=== PATIENT | female | born 1960 | race Caucasian/White ===

== ENCOUNTER 2018-09-12 05:56 | Day surgery (SDC) | payer BC ==
--- NOTE | 2018-09-05 10:07 | EKG ---
Test Date: 2018-09-05 Test Time: 09:36:30 Woven Label Designer: MACKENZIE MEASUREMENT RESULTS: Intervals: Rate: 66 IN: 156 QRSD: 86 QT: 406 QTc: 425 Mongo: P: 47 IN: 156 QRS: 58 T: 63 INTERPRETIVE STATEMENTS: Normal sinus rhythm Normal ECG No previous ECG available for comparison Electronically Signed On 09-05-18 10:07:46 ERADICATOR by Eliseo Dia
[2018-09-05 10:09] LABS: Protime INR 0.95
[2018-09-05 10:11] LABS: Absolute Lymphocytes (CBC) 2.3 K/uL (0.7-4.9); Absolute Monocytes 0.6 K/uL (0.1-1.3); Basophils % 0.7 % (0-1.3); Eosinophils % 4.6 % (0-4.4); Hematocrit 38.8 % (36.0-45.0); Lymphocytes % 31.5 % (15.3-44.8); MCH 29.5 pg (27.0-35.0); MCV 85.7 fL (80-100); MPV 8.4 fL (7.6-11.3); Monocytes % 8.6 % (3.3-12.3); RBC Red Blood Cell Count 4.53 M/uL (3.86-4.86)
[2018-09-05 10:14] LABS: Potassium 4.6 mmol/L (3.5-5.1)
[2018-09-12] MEDS ORDERED: CEFAZOLIN/SWI 2gm 2 GM/20 ML SYR IV SCH (06:00)
[2018-09-12] MEDS ORDERED: CEFAZOLIN/SWI 1gm 1 GM/10 ML SYR ONE ×2 (06:41→08:27)
[2018-09-12] MEDS ORDERED: Ringers Lactate 1,000 ML IV ONE ×2 (06:41→07:17)
[2018-09-12] MEDS ORDERED: LIDOCAINE 1% MPF 30 ML VIAL ONE (06:45)
[2018-09-12] MEDS ORDERED: MIDAZOLAM HCL 2 MG/2 ML INJ ONE (07:05)
[2018-09-12] MEDS ORDERED: PROPOFOL 200 MG/20 ML VIAL IV ONE (07:05)
[2018-09-12] MEDS ORDERED: FENTANYL CITR 250 MCG/5 ML ONE (07:05)
[2018-09-12] MEDS ORDERED: ROCURONIUM 50 MG/5 ML VIAL IV ONE (07:05)
[2018-09-12] MEDS ORDERED: LIDOCAINE 2% MPF 5 ML VIAL ONE (07:05)
[2018-09-12] MEDS ORDERED: DEXAMETHASONE 4 MG/ML VIAL ONE (07:13)
[2018-09-12] MEDS ORDERED: ROPLVACAINE HCL 20 ML ONE (07:13)
[2018-09-12] MEDS ORDERED: EPINEPHRINE/PF 1 MG/ML AMP ONE (07:17)
[2018-09-12] MEDS ORDERED: ONDANSETRON HCL 40 MG/20 ML VIAL ONE (07:36)
[2018-09-12] MEDS ORDERED: KETOROLAC 30 MG/ML INJ ONE (08:48)
--- NOTE | 2018-09-12 09:11 | P.BOP ---
Preoperative diagnosis: right shoulder adhesive capsulitis, SLAP tear Postoperative diagnosis: same Primary procedure: right shoulder arthroscopic SLAP debridement w/ lysis of adhesions Secondary procedure: right shoulder arthroscopic rotator cuff debridement Toe Sewer: NONE,NONE Estimated blood loss: 5 cc Specimen: none Findings: see dictation Anesthesia: General Complications: None Implants: none Fluids & blood products: per anesthesia Transferred to: Recovery Room Condition: Good
[2018-09-12] MEDS ORDERED: ONDANSETRON 4 MG/2 ML VIAL ONE (09:21)
--- NOTE | 2018-09-12 22:34 | OP ---
Date of Procedure: 09/12/2018 Surgeon: Marco Antonio Nunez MD Preoperative Diagnoses: 1.Right shoulder partial rotator cuff tear. 2.Right shoulder superior labrum anterior and posterior tear. 3.Right shoulder bicipital tenosynovitis. Postoperative Diagnoses: 1.Right shoulder partial rotator cuff tear. 2.Right shoulder superior labrum anterior and posterior tear. 3.Right shoulder bicipital tenosynovitis. Procedure Performed: 1.Right shoulder arthroscopic superior labrum anterior and posterior tear debridement. 2.Right shoulder arthroscopic debridement of partial thickness rotator cuff tear. Anesthesia: General endotracheal. Fluids: Per Anesthesia record. Estimated Blood Loss: Less than 5 cc. Implants: None. Complications: None. Indication For Procedure: Sonali is a 58-year-old female who presented with history of adhesive caps ulitis with continued pain. She had MRI preoperatively which demonstrated some rotator cuff tendinit is as well as some partial-thickness tear as well as some signal within her superior labrum with cont inued pain. I discussed with the patient at length risks and benefits associated with operative and nonoperative treatment. She expressed understanding and elected to proceed with operative treatment. Description Of Procedure: After informed consent was obtained, the patient was identified in the pre operative holding area. The right upper extremity was marked. The patient then underwent an intersc lynda block to her right upper extremity performed by Anesthesia. She was then transferred to the op erating room, transferred to the operative table in supine fashion, placed under general endotracheal anesthesia. She was then placed in the beach chair position with her extremities well padded. The right upper extremity was then examined. The patient did have full flexion, full external rotation, and full abduction of the right shoulder. The right upper extremity was then prepped and draped in u sual sterile fashion. A time-out was initiated. The correct patient and procedure were confirmed an d identified. The patient did receive her preoperative prophylactic antibiotics. Via the posterior portal position, a spinal needle was introduced in the glenohumeral joint and 30 cc of normal saline was injected into the glenohumeral joint to distend the capsule. A stab incision was made to create a posterior portal. An arthroscope was brought into the posterior portal position. A diagnostic art hroscopy was performed. Anterior portal was then created and a cannula was placed to aid with the di agnostic arthroscopy. The patient was noted to have some mild minimal partial-thickness fraying of t he undersurface of the supraspinatus, which was debrided using an arthroscopic shaver. Overall, her rotator cuff was found to be intact and was stable to probe. There was no significant chondral damag e of the humeral head or glenoid surface. The patient was noted to have a type 1 SLAP tear. However , the superior labrum as well as anterior posterior labrum were stable to probe, and at that point, n o fixation of the labrum was noted to need to be done, and no biceps tenotomy or tenodesis was found to be necessary. There was some mild erythema at the base of the biceps tendon. However, the biceps tendon was brought into the joint by placing a probe on it and bringing the extra-articular portion intra-articularly. There was no fraying or significant damage to the biceps tendon. There are no lo ose bodies found within the axillary pouch, and the inferior labrum was also found to be intact. The re was some scar tissue noted over the rotator interval, which was debrided using the arthroscopic sh aver and radiofrequency ablator, consistent with her prior history of adhesive capsulitis. The arthr oscope was then brought in the subacromial space. There was no significant fraying of the coracoacro mial ligament. Subacromial bursectomy was performed. The arthroscopic instruments were removed with out complication. The portals were approximated using a 3-0 Monocryl. Sterile dressings were applie d. The patient was placed in a postoperative sling and awakened and transferred to the PACU in stabl e condition. Postoperative Plan: She will begin with physical therapy next week and to progress with activities a nd follow post periscapular strengthening protocol. EFRAIN/ARNAUD Voice ID: [id number] Report ID: [id number]
== END 2018-09-12 11:00 | disposition home or self-care (01) ==
LOC: OR 05:56
PROVIDERS: ATTEND Orthopaedic Surgery Sports Medicine
PROC: 0RBJ4ZZ Excision of Right Shoulder Joint, Percutaneous Endoscopic Approach (ICD-10-PCS; principal; 2018-09-12 07:30)
DX: S43.431A Superior glenoid labrum lesion of right shoulder, initial encounter (principal); M75.111 Incomplete rotator cuff tear or rupture of right shoulder, not specified as traumatic; M75.21 Bicipital tendinitis, right shoulder; M75.01 Adhesive capsulitis of right shoulder; Z88.8 Allergy status to other drugs, medicaments and biological substances
CPT/HCPCS: 36415; 80048; 85025; 85610; 85730; 93005; J0171; J0690; J2250; J2405; J2704; J2795; J3010